=== PATIENT | female | born 1985 | race Caucasian/White ===

== ENCOUNTER 2023-10-22 16:34 | Emergency (ER) | payer SELFPAY ==
[~2023-10-22] VITALS: Ht 162.6 cm; Wt 59.1 kg
[2023-10-22 17:00] VITALS: BP 96/65; PULSE 72; TEMP 98.3
[2023-10-22 17:17] LABS: COLLECTION METHOD CLEAN CATCH
[2023-10-22 17:27] LABS: PH 5.5 (5.0-8.5); URINE APPEARANCE CLOUDY (CLEAR/HAZY); URINE BLOOD 2+ (NEGATIVE); URINE COLOR YELLOW (YELLOW); URINE GLUCOSE NEGATIVE (NEGATIVE); URINE KETONE TRACE (NEGATIVE); URINE NITRATE POSITIVE (NEGATIVE); URINE PROTEIN(semi-quant) 1+ (NEGATIVE)
[2023-10-22 18:12] LABS: URINE BACTERIA MANY /hpf (NONE SEEN)
[2023-10-22] MEDS ORDERED: BACTRIM DS 8001 TAB PO (20:08)
[2023-10-23] MEDS ORDERED: K-DUR20 MEQ PO (15:12)
[2023-10-23] MEDS ORDERED: ZOFRAN ODT4 MG PO (15:12)
[2023-10-23] MEDS ORDERED: CEFTIN500 MG PO (15:40)
== END 2023-10-22 19:39 | disposition left against medical advice (07) ==
LOC: COL.ER 16:34
PROVIDERS: Emergency Medicine
DX: R10.31 Right lower quadrant pain (principal); R50.9 Fever, unspecified

== ENCOUNTER 2023-10-23 12:59 | Emergency (ER) | payer SELFPAY ==
[~2023-10-23] VITALS: Ht 162.6 cm; Wt 59.1 kg
[~2023-10-23 12:59] MED LIST: BACTRIM DS 8001 TAB PO
[2023-10-23 13:07] VITALS: TEMP 100.9
[2023-10-23] MEDS ORDERED: Ketorolac 15 MG/ML VIAL IV ONE (13:30)
[2023-10-23] MEDS ORDERED: NS 1,000 ML IV ONE (13:30)
[2023-10-23 13:49] LABS: BASO % 0.2 % (0.0-2.0); GRAN # 9.3 K/mm3 (1.4-6.5); GRAN % 88.4 % (42.2-75.2); HEMATOCRIT 37.6 % (37.0-47.0); HEMOGLOBIN 13.1 g/dl (12.5-16.0); LYMPH # 0.7 K/mm3 (1.2-3.4); LYMPH % 6.2 % (20.0-51.0); MEAN CELL VOLUME 99 fl (80.0-100.0); MEAN CORPUSCULAR HEMOGLOBIN 34 pg (27-31); MEAN CORPUSCULAR HGB CONC 35 g/dl (33.0-37.0); MEAN PLATELET VOLUME 9.5 fl (7.4-10.4); MONO # 0.5 K/mm3 (0.1-0.6); MONO % 4.5 % (1.7-9.3); PLATELET COUNT 152 K/mm3 (130-400); RED BLOOD COUNT 3.81 M/mm3 (4.10-5.30); REDCELL DISTRIBUTION WIDTH-CV 14.6 % (11.5-14.5)
[2023-10-23 14:00] LABS: COLLECTION METHOD CLEAN CATCH
[2023-10-23 14:11] LABS: ALBUMIN 2.8 g/dL (3.5-5.0); BILIRUBIN,TOTAL 1.1 mg/dL (0.2-1.2); C-REACTIVE PROTEIN 13.82 mg/dL (0.00-0.50); CALCIUM 8.3 mg/dL (8.4-10.2); CREATININE, serum 0.71 mg/dL (0.57-1.11); TOTAL PROTEIN 6.4 g/dl (6.2-8.1)
[2023-10-23 14:13] LABS: POTASSIUM 2.9 mEq/L (3.5-4.5)
[2023-10-23 14:18] LABS: URINE APPEARANCE CLOUDY (CLEAR/HAZY); URINE BLOOD 2+ (NEGATIVE); URINE COLOR Dark Yellow (YELLOW); URINE GLUCOSE NEGATIVE (NEGATIVE); URINE KETONE 1+ (NEGATIVE); URINE NITRATE POSITIVE (NEGATIVE); URINE PROTEIN(semi-quant) 1+ (NEGATIVE)
[2023-10-23 14:39] LABS: URINE BACTERIA MANY /hpf (NONE SEEN); URINE WBC >50 /hpf (0-2)
[2023-10-23] MEDS ORDERED: cefTRIAXone 1 G in Water For Injection,Sterile 10 ML IV ONE (15:00)
[2023-10-23] MEDS ORDERED: ZOFRAN ODT4 MG PO (15:12)
[2023-10-23] MEDS ORDERED: K-DUR20 MEQ PO (15:12)
[2023-10-23] MEDS ORDERED: CEFTIN500 MG PO (15:40)
[2023-10-23 15:55] VITALS: BP 114/86; PULSE 98
== END 2023-10-23 15:50 | disposition home or self-care (01) ==
LOC: COL.ER 12:59
PROVIDERS: Nurse Practitioner
DX: N39.0 Urinary tract infection, site not specified (principal); E87.6 Hypokalemia; F17.210 Nicotine dependence, cigarettes, uncomplicated; Z88.0 Allergy status to penicillin
CPT/HCPCS: J0696; J1885; J7030